=== PATIENT | female | born 1985 ===

== ENCOUNTER 2016-11-09 15:04 | Emergency (ER) | payer SELFPAY ==
[2016-11-09] MEDS ORDERED: Apap-Butalbital-Caffeine 325-50-40mg Tab PO STA (15:33)
[2016-11-09] MEDS ORDERED: Apap-Butalbital-Caffeine 325-50-40mg Tab ONE (15:48)
[2016-11-09 15:58] VITALS: BP 123/76; PULSE 89; RESP 20; TEMP 97.4; O2SAT 99
--- NOTE | 2016-11-09 16:01 | C.PDOC ---
History Of Present Illness Patient is a 31 y/o female who presents to the ED with a complaint of a headache for the last 10 days. Patient states the pain is intermittent and starts in the back of neck and radiates anteriorly; headache is described as throbbing. Patient normally takes unknown prescribed medication for headaches but notes to have run out. Denies head trauma, dizziness, nausea/vomiting, photophobia, LOC, numbness or weakness. Time Seen by Provider: 11/09/16 15:17 Chief Complaint (Nursing): Headache History Per: Patient History/Exam Limitations: no limitations Onset/Duration Of Symptoms: Days (approximately 10 days. ) Current Symptoms Are (Timing): Still Present Quality: Other ("throbbing") Associated Symptoms: denies: Photophobia, Nausea, Vomiting, Extremity Weakness Recent travel outside of the [place]: No Past Medical History Reviewed: Historical Data, Nursing Documentation, Vital Signs Vital Signs: Last Vital Signs Temp 97.4 F L 11/09/16 15:17 Pulse 89 11/09/16 15:17 Resp 20 11/09/16 15:17 BP 123/76 11/09/16 15:17 Pulse Ox 99 11/09/16 17:45 - Medical History PMH: No Chronic Diseases Surgical History: No Surg Hx Family History: States: No Known Family Hx - Social History Hx Alcohol Use: No Hx Substance Use: No - Immunization History Hx Tetanus Toxoid Vaccination: No Hx Influenza Vaccination: No Review Of Systems Constitutional: Negative for: Fever, Weakness Cardiovascular: Negative for: Chest Pain Respiratory: Negative for: Shortness of Breath Gastrointestinal: Negative for: Nausea, Vomiting, Diarrhea Neurological: Positive for: Headache. Negative for: Weakness, Numbness Physical Exam - Physical Exam Appears: Well, Non-toxic, No Acute Distress Skin: Normal Color, Warm, Dry, No Rash Head: Atraumatic, Normacephalic Eye(s): bilateral: Normal Inspection Ear(s): Bilateral: Normal Oral Mucosa: Moist Throat: No Erythema, No Exudate Neck: Normal ROM, Supple Chest: Symmetrical Cardiovascular: Rhythm Regular, No Friction Rub, No Murmur Respiratory: Normal Breath Sounds, No Rales, No Rhonchi, No Wheezing Gastrointestinal/Abdominal: Soft, No Tenderness Back: Normal Inspection, No CVA Tenderness Extremity: Normal ROM (x4) Neurological/Psych: Oriented x3, Normal Speech, Normal Cognition, Normal Motor Gait: Steady ED Course And Treatment O2 Sat by Pulse Oximetry: 99 (room air) Pulse Ox Interpretation: Normal Medical Decision Making Medical Decision Making: Plan: Fioricet and Motrin administered. On re-exam, the patient reports improvement of symptoms. Lungs are CTA, heart is RRR, abdomen is soft, non- tender Abdomen is soft, non-tender and patient is tolerating PO well. Ambulatory in the ED with steady gait. Follow up with the medical doctor within 1-2 days. Return if worsened. Progress: Patient discharged home. Disposition - Disposition Referrals: [facility] [Outside] Disposition: HOME/ ROUTINE Disposition Time: 16:01 Condition: GOOD Additional Instructions: Follow up with the medical doctor within 1-2 days. Return if worsened. Prescriptions: Acetaminophen/Butalbital/Caf [Fioricet] 1 tab PO TID PRN #20 tab PRN Reason: Headache Ibuprofen [Motrin] 600 mg PO TID #21 tab Instructions: Acute Headache (ED) Forms: [employer] (Estonian) - Clinical Impression Clinical Impression: Headache - Scribe Statement The provider has reviewed the documentation as recorded by the Scribe Sahra Mann All medical record entries made by the Scribe were at my direction and personally dictated by me. I have reviewed the chart and agree that the record accurately reflects my personal performance of the history, physical exam, medical decision making, and the department course for this patient. I have also personally directed, reviewed, and agree with the discharge instructions and disposition.
== END 2016-11-09 16:06 | disposition home or self-care (01) ==
LOC: C.ER 15:04
DX: R51 Headache (principal)

== ENCOUNTER 2017-03-15 22:18 | Emergency (ER) | payer OTHER, SELFPAY ==
[2017-03-15 22:42] VITALS: BP 121/87; PULSE 86; TEMP 98.3; O2SAT 98
--- NOTE | 2017-03-15 23:57 | C.PDOC ---
History Of Present Illness 31 year old female presents to the ER with a complaint of feeling "gassy", heart burn, and burping after eating for the past month. Patient is being seen by her PMD and is scheduled for an upper GI series and US, however, she brought her kids in for flu symptoms and requested to be evaluated as well. Patient also reports a mild cough. Denies abdominal pain, vomiting, or fever. Time Seen by Provider: 03/15/17 22:52 Chief Complaint (Nursing): Abdominal Pain History Per: Patient History/Exam Limitations: no limitations Onset/Duration Of Symptoms: Days Current Symptoms Are (Timing): Still Present Context: Food Associated Symptoms: denies: Fever, Chills, Vomiting Exacerbating Factors: None Alleviating Factors: None Recent travel outside of the [place]: No Abnormal Vaginal Bleeding: No Past Medical History Reviewed: Historical Data, Nursing Documentation, Vital Signs Vital Signs: Last Vital Signs Temp 98.3 F 03/15/17 22:40 Pulse 86 03/15/17 22:40 Resp 20 03/16/17 00:21 BP 121/87 03/15/17 22:40 Pulse Ox 98 03/16/17 03:19 Family History: States: Unknown Family Hx - Social History Hx Alcohol Use: No Hx Substance Use: No - Immunization History Hx Tetanus Toxoid Vaccination: No Hx Influenza Vaccination: No Hx Pneumococcal Vaccination: No Review Of Systems Constitutional: Negative for: Fever, Chills Respiratory: Positive for: Cough Gastrointestinal: Positive for: Other ("gassy", heartburn, burping). Negative for: Vomiting, Abdominal Pain, Diarrhea Physical Exam - Physical Exam Appears: Non-toxic, No Acute Distress Skin: Normal Color, Warm, Dry Head: Atraumatic, Normacephalic Eye(s): bilateral: Normal Inspection Oral Mucosa: Moist Throat: Normal, No Erythema, No Exudate Neck: Normal, Supple Chest: Symmetrical, No Tenderness Cardiovascular: Rhythm Regular Respiratory: Normal Breath Sounds, No Rales, No Rhonchi, No Wheezing Gastrointestinal/Abdominal: Soft, No Tenderness Neurological/Psych: Oriented x3, Normal Speech ED Course And Treatment O2 Sat by Pulse Oximetry: 98 (Room air) Pulse Ox Interpretation: Normal Progress Note: Patient is resting comfortably in the ER in no acute distress, and no discomfort at this time. Will discharge home with Rx for maalox and instruct to follow up with appointments as scheduled. Disposition Counseled Patient/Family Regarding: Diagnosis, Need For Followup, Rx Given - Disposition Referrals: [facility] [Outside] Disposition: HOME/ ROUTINE Disposition Time: 23:49 Condition: STABLE Additional Instructions: Please follow up with PMD Take maalox Avoid spicy foods, fried foods Keep appointment as scheduled Return to ER if worse Prescriptions: Aluminum Hydroxide/Magnesium H [Maalox 30 ml] 30 ml PO Q6 #120 ml Instructions: Chronic Indigestion (ED) Forms: [employer] (Cook Islander) Print Language: [place] - Clinical Impression Clinical Impression: Dyspepsia - PA / HAT RENOVATOR / Resident Statement MD/DO has reviewed & agrees with the documentation as recorded. - Scribe Statement The provider has reviewed the documentation as recorded by the Scribdavid Espinoza All medical record entries made by the Alexibdavid were at my direction and personally dictated by me. I have reviewed the chart and agree that the record accurately reflects my personal performance of the history, physical exam, medical decision making, and the department course for this patient. I have also personally directed, reviewed, and agree with the discharge instructions and disposition.
[2017-03-16 00:21] VITALS: RESP 20
== END 2017-03-16 00:21 | disposition home or self-care (01) ==
LOC: C.ER 22:18
DX: R10.13 Epigastric pain (principal)